=== PATIENT | female | born 1985 | race Caucasian/White ===

== ENCOUNTER 2019-02-28 15:01 | Emergency (ER) | payer SELFPAY ==
[~2019-02-28] VITALS: Ht 154.9 cm; Wt 127.2 kg
[~2019-02-28 15:01] MED LIST: ALPR0.5T7 PO; FEXO180T15 PO; LEVO137T3 PO; LISI-170 PO; ONDA8TAB16 PO
[2019-02-28 16:28] LABS: BASOPHILS # (AUTO) 0.06 x10^3/uL (0-0.1); BASOPHILS % (AUTO) 1 % (0-1); EOSINOPHILS # (AUTO) 0.28 x10^3/uL (0-0.4); EOSINOPHILS % (AUTO) 3 % (1-7); LYMPHOCYTES % (AUTO) 27 % (22-44); MD NO; MEAN CORPUSCULAR HEMOGLOBIN 32.4 pg (27.0-34.8); MEAN CORPUSCULAR HGB CONC 34.3 g/dL (32.4-35.8); MEAN CORPUSCULAR VOLUME 94.6 fL (80-100); MEAN PLATELET VOLUME 8.5 fL (7.4-10.4); MONOCYTES # (AUTO) 0.41 x10^3/uL (0.2-0.8); MONOCYTES % (AUTO) 5 % (2-9); NEUTROPHILS # (AUTO) 5.67 x10^3/uL (1.8-6.8); NEUTROPHILS % (AUTO) 64 % (42-75); PLATELET COUNT 282 x10^3/uL (130-400); RED BLOOD COUNT 4.96 x10^6/uL (3.82-5.3); RED CELL DISTRIBUTION WIDTH 13.1 % (9.6-15.2)
[2019-02-28 16:40] LABS: ALANINE AMINOTRANSFERASE 46 U/L (12-78); ALBUMIN 4.5 g/dL (3.4-5.0); ANION GAP 8 mmol/L (5-15); CALCIUM 9.5 mg/dL (8.5-10.1); CHLORIDE 103 mmol/L (98-107)
[2019-02-28 16:44] LABS: ALKALINE PHOSPHATASE 90 U/L (45-117); BILIRUBIN,TOTAL 0.6 mg/dL (0.2-1.0); TOTAL PROTEIN 8.6 g/dL (6.4-8.2)
[2019-02-28] MEDS ORDERED: SODIUM CHLORIDE FLUSH 10ML SYR IVF ONE (17:00)
[2019-02-28] MEDS ORDERED: SODIUM CHLORIDE 0.9% 1,000ML IVBOLUS ONE (17:00)
[2019-02-28 17:04] LABS: ACETONE, SERUM Negative (Negative)
--- NOTE | 2019-02-28 17:31 | NUR ---
PIV PLACED-1L NS ADMINISTERED PER EMAR
[2019-02-28 17:33] LABS: MICROSCOPIC AUTO
[2019-02-28 17:34] LABS: CULTURE INDICATED? YES
--- NOTE | 2019-02-28 17:53 | NUR ---
1L NS 60 % COMPLETE. PATIENT REPORTS "FOG FEELS BETTER, BUT I STILL HAVE A HEADACHE RATED AT 7/10." PROVIDER MADE AWARE VSS ON [employer] OPERATOR
[2019-02-28] MEDS ORDERED: ACETAMINOPHEN 500 MG TABLET PO ONE (18:00)
--- NOTE | 2019-02-28 18:28 | NUR ---
1L ns complete Repeat fsbs 198 er provider made aware
[2019-02-28] MEDS ORDERED: ACETAMINOPHEN 500 MG TABLET ONE (18:32)
[2019-02-28 18:36] VITALS: BP 133/75
== END 2019-02-28 19:31 | disposition home or self-care (01) ==
LOC: ED 19:25
DX: E11.65 Type 2 diabetes mellitus with hyperglycemia (principal); I10 Essential (primary) hypertension; Z86.39 Personal history of other endocrine, nutritional and metabolic disease
CPT/HCPCS: 36415; 80053; 81001; 82010; 82800; 82962; 84703; 85025; 87086; 93005; 96360; 99284; J7030